=== PATIENT | male | born 1990 | race African-American/Black ===

== ENCOUNTER 2018-04-29 18:12 | Emergency (ER) | payer MEDICAID ==
[~2018-04-29] VITALS: Ht 172.7 cm; Wt 74.0 kg
[2018-04-29] MEDS ORDERED: LORAZEPAM 1MG TABLET PO ONE (21:45)
[2018-04-29 21:57] LABS: EOSINOPHILS % 0.2 % (0.0-5.0); HEMATOCRIT. 42.3 % (42.0-52.0); HEMOGLOBIN. 14.9 g/dL (14.0-18.0); LYMPHOCYTES % 32.7 % (20.0-50.0); MEAN CORPUSCULAR HEMOGLOBIN 31.2 pg (28.0-32.0); MEAN CORPUSCULAR VOLUME 88.9 fL (80.0-94.0); MEAN PLATELET VOLUME 8.1 fl (7.4-10.4); MONOCYTES % 5.7 % (2.0-8.0); NEUTROPHILS % 60.4 % (40.0-76.0); PLATELET 181 x1000/uL (130-400); RED BLOOD CELL COUNT 4.76 mill/uL (4.7-6.1); RED CELL DISTRIBUTION WIDTH 12.6 % (11.6-14.6)
[2018-04-29 22:04] LABS: CHLORIDE 105 mEq/L (98-107)
[2018-04-29 22:10] LABS: ETHANOL BLOOD < 10 mg/dL
[2018-04-29 23:19] LABS: CLARITY URINE CLEAR (CLEAR); COLOR URINE YELLOW (YELLOW); KETONES URINE NEGATIVE (NEGATIVE); LEUKOCYTE ESTERASE URINE NEGATIVE (NEGATIVE); NITRITE URINE NEGATIVE (NEGATIVE); OCCULT BLOOD URINE NEGATIVE (NEGATIVE); PH URINE 6.5 (4.5-8.0); PROTEIN URINE NEGATIVE (NEGATIVE); SPECIFIC GRAVITY URINE 1.018 (1.005-1.030)
[2018-04-29 23:33] LABS: CANNABINOID URINE SCREEN PRESUMTIVE POSITIVE (NEGATIVE); OPIATES URINE SCREEN NEGATIVE (NEGATIVE); PHENCYCLIDINE URINE SCREEN NEGATIVE (NEGATIVE)
[2018-04-29 23:34] LABS: *AMPHETAMINES SCREEN URINE NEGATIVE (NEGATIVE); *BARBITURATES SCREEN URINE NEGATIVE (NEGATIVE); *BENZODIAZEPINES SCREEN URINE NEGATIVE (NEGATIVE); *COCAINE SCREEN URINE NEGATIVE (NEGATIVE); METHADONE URINE SCREEN NEGATIVE (NEGATIVE)
[2018-04-30 00:50] VITALS: BP 129/74
== END 2018-04-30 00:50 | disposition home or self-care (01) ==
LOC: ER 18:12
DX: S09.8XXA Other specified injuries of head, initial encounter (principal); M25.562 Pain in left knee; M54.2 Cervicalgia; F41.9 Anxiety disorder, unspecified; I10 Essential (primary) hypertension; F12.10 Cannabis abuse, uncomplicated; W01.0XXA Fall on same level from slipping, tripping and stumbling without subsequent striking against object, initial encounter; Y93.89 Activity, other specified; Y99.8 Other external cause status; Y92.89 Other specified places as the place of occurrence of the external cause
CPT/HCPCS: 36415; 70450; 72125; 73562; 80053; 80305; 81003; 85025; 99285; G0482

== ENCOUNTER 2018-06-17 22:04 | Emergency (ER) | payer MEDICAID | END 2018-06-18 01:30 | disposition left against medical advice (07) | LOC: ER 06-18 00:17 | DX: H57.8 Other specified disorders of eye and adnexa (principal); Z53.21 Procedure and treatment not carried out due to patient leaving prior to being seen by health care provider ==

== ENCOUNTER 2018-06-18 01:31 | Emergency (ER) | payer MEDICAID ==
[~2018-06-18] VITALS: Ht 182.9 cm; Wt 76.0 kg
[2018-06-18 01:47] VITALS: BP 122/86
== END 2018-06-18 04:00 | disposition left against medical advice (07) ==
LOC: ER 03:13
DX: H53.8 Other visual disturbances (principal); Z53.21 Procedure and treatment not carried out due to patient leaving prior to being seen by health care provider

== ENCOUNTER 2018-06-28 13:18 | Emergency (ER) | payer MEDICAID ==
[~2018-06-28] VITALS: Ht 188 cm; Wt 76.0 kg
[2018-06-28 13:43] VITALS: BP 140/89
[2018-06-28] MEDS ORDERED: FLUORESCEIN SODIUM 1MG/STRIP OP ONE (15:30)
== END 2018-06-28 15:59 | disposition home or self-care (01) ==
LOC: ER 13:18
DX: H10.13 Acute atopic conjunctivitis, bilateral (principal); R03.0 Elevated blood-pressure reading, without diagnosis of hypertension
CPT/HCPCS: 99283

== ENCOUNTER 2020-09-02 16:47 | Emergency (ER) | payer SELFPAY ==
[~2020-09-02] VITALS: Ht 182.9 cm; Wt 79.0 kg
[2020-09-02 16:53] VITALS: BP 127/78
[2020-09-02] MEDS ORDERED: KETOROLAC 30MG/ML VIAL IM ONE (17:15)
== END 2020-09-02 18:24 | disposition home or self-care (01) ==
LOC: ER 16:47
DX: M25.551 Pain in right hip (principal)
CPT/HCPCS: 73502; 96372; 99283; J1885